=== PATIENT | female | born 1955 | race Caucasian/White ===

== ENCOUNTER → 2019-07-20 | Outpatient (CLI) | payer MEDICARE, OTHER ==
[~2019-07-20] MED LIST: B COMPLEX & B121 TAB PO; CALCIPOTRIENE TP; CELEBREX 200MG200 MG PO; CHLORASEPTIC 1180 M3; HYDROPHOR1 OI1 TP; IRON325 M2 PO; MUCINEX 60600 MG/TA1 PO; NASACORT OTC NS; NEURONTIN100 MG/CAP PO; NEXIUM 40MG40 MG PO; TYLENOL 500MG500 MG PO; ULTRAVATE CREAM15 GM TP; VITAMIN D 1001000 IU PO; [UNRECOGNIZED DRUG - OTHER] TP
== END ==
LOC: MHCPAIN 13:21
DX: M54.5 Low back pain (principal); M79.662 Pain in left lower leg; M89.29 Other disorders of bone development and growth, multiple sites
CPT/HCPCS: G0463

== ENCOUNTER 2019-10-12 10:00 | Outpatient (RCR) | payer MEDICARE, OTHER | END 2019-10-30 | disposition home or self-care (01) | LOC: WSC | DX: M53.3 Sacrococcygeal disorders, not elsewhere classified (principal); M47.26 Other spondylosis with radiculopathy, lumbar region ==

== ENCOUNTER → 2021-07-15 | Outpatient (CLI) | payer MEDICARE, OTHER | LOC: COL.PUL 12:47 | DX: R06.02 Shortness of breath (principal) | CPT/HCPCS: J7674 ==

== ENCOUNTER → 2021-08-27 | Outpatient (CLI) | payer MEDICARE, OTHER | LOC: COL.VAS 10:24 | DX: I07.1 Rheumatic tricuspid insufficiency (principal) ==

== ENCOUNTER 2021-10-29 09:45 | Outpatient (RCR) | payer MEDICARE, OTHER | END 2021-10-30 | disposition home or self-care (01) | LOC: WSPT | DX: M15.9 Polyosteoarthritis, unspecified (principal); M54.31 Sciatica, right side ==